=== PATIENT | female | born 1965 ===

== ENCOUNTER 2021-11-21 09:06 | Outpatient (CLI) | payer OTHER ==
[~2021-11-21 09:06] MED LIST: AMOX1TAB12 PO; IBUPROFEN800 MG PO; NORVASC2.5 M1; SYNTHROID50 MCG; VASOTEC20 MG; ZANTAC300 MG PO
== END 2021-11-21 09:14 | disposition home or self-care (01) ==
LOC: SONOGRAMA 09:06
PROVIDERS: ATTEND Pathology Anatomic Pathology & Clinical Pathology
DX: E04.2 Nontoxic multinodular goiter (principal)